=== PATIENT | female | born 1965 | race Caucasian/White ===

== ENCOUNTER 2020-02-10 21:19 | Emergency (ER) | payer OTHER ==
[~2020-02-10] VITALS: Ht 167.6 cm; Wt 87.3 kg
--- NOTE | 2020-02-10 21:26 | NUR ---
Patient BIB ambulance for OD on [place]. Patient was fighting with her and took [phone] of her 's RX at approx [phone]. Patient has a hx of the same. Patient also had approx 1/2 of a fifth of vodka. Patient is AAOx4, GCS 15 but appears drowsy. SPO2 80s on RA. Respirations even and unlabored.
[2020-02-10] MEDS ORDERED: NALOXONE 0.4 MG/ML, 1ML IVPush PRN (21:30)
[2020-02-10] MEDS ORDERED: SODIUM CHLORIDE 0.9% 1,000ML IVBOLUS ONE (21:30)
[2020-02-10] MEDS ORDERED: ONDANSETRON 2MG/ML, 2ML IVPush ONE (21:30)
--- NOTE | 2020-02-10 21:30 | NUR ---
TASK RN: ALL BELONGINGS REMOVED FROM PT. IN 1 BAG; SECURED IN LOCKER. 1 PAIR OF LEGGINGS, 1 TANK TOP, 1 LONG SLEEVE SHIRT, 1 PAIR SLIPPERS, DRIVERS LICENSE PLACED INTO LEFT SLIPPER. PT. PROVIDED WITH WARM BLANKETS, ALL MONITORS IN PLACE, ALL SAFETY MEASURES OBSERVED.
[2020-02-10] MEDS ORDERED: ONDANSETRON 2MG/ML, 2ML ONE (21:32)
[2020-02-10] MEDS ORDERED: NALOXONE 0.4 MG/ML, 1ML ONE (21:35)
[2020-02-10 21:50] LABS: BASOPHILS % (AUTO) 1 % (0-1); EOSINOPHILS % (AUTO) 2 % (1-7); LYMPHOCYTES % (AUTO) 44 % (22-44); MEAN CORPUSCULAR HEMOGLOBIN 33.1 pg (27.0-34.8); MEAN CORPUSCULAR HGB CONC 33.8 g/dL (32.4-35.8); MEAN PLATELET VOLUME 8.9 fL (7.4-10.4); MONOCYTES % (AUTO) 9 % (2-9); NEUTROPHILS % (AUTO) 44 % (42-75); PLATELET COUNT 173 x10^3/uL (130-400); RED BLOOD COUNT 3.94 x10^6/uL (3.82-5.3); RED CELL DISTRIBUTION WIDTH 13.1 % (9.6-15.2)
[2020-02-10 21:51] LABS: MD NO
[2020-02-10 22:02] LABS: ALANINE AMINOTRANSFERASE 19 U/L (12-78); ANION GAP 4 mmol/L (5-15); CALCIUM 8.6 mg/dL (8.5-10.1); CHLORIDE 110 mmol/L (98-107); CREATININE 0.87 mg/dL (0.55-1.02)
[2020-02-10 22:04] LABS: ALKALINE PHOSPHATASE 77 U/L (45-117); BILIRUBIN,TOTAL 0.2 mg/dL (0.2-1.0); SALICYLATE LEVEL < 1.7 mg/dL (2.8-20.0); TOTAL PROTEIN 7.1 g/dL (6.4-8.2)
--- NOTE | 2020-02-10 22:30 | NUR ---
Assisted patient to BR in wheelchair with O2 attached. On RA patient desat to 87%. Urine provided. Sent to lab. Called patient's to update per patient. No answer; LVM.
--- NOTE | 2020-02-10 22:55 | NUR ---
Patient awake and alert; continuously asking to go home. States, "I did not actually take those pills. I just told my that to get attention." Advised patient we have to evaluate labs further. Patient agreed.
--- NOTE | 2020-02-10 22:56 | NUR ---
Judit Bernard [phone]
[2020-02-10 23:29] LABS: AMPHETAMINE SCREEN, URINE Negative (Negative); BARBITURATE SCREEN, URINE Negative (Negative); BENZODIAZEPINE SCREEN, URINE Negative (Negative); CANNABINOID SCREEN, URINE Negative (Negative); COCAINE SCREEN, URINE Negative (Negative); METHADONE SCREEN, URINE Negative (Negative); OPIATE SCREEN, URINE Positive (Negative)
[2020-02-10] MEDS ORDERED: BUPR150T73 PO (23:52)
[2020-02-10] MEDS ORDERED: QUET100T PO (23:52)
[2020-02-10] MEDS ORDERED: ESCI10TA PO (23:52)
[2020-02-10] MEDS ORDERED: ATOR10TA9 PO (23:52)
--- NOTE | 2020-02-11 00:09 | NUR ---
Provided water to patient. Patient stating, "I'm going to check myself out. I want to go home." Advised patient another lab level will be drawn. Patient agreed.
--- NOTE | 2020-02-11 01:35 | NUR ---
TASK RN: PT. PROVIDED WITH WATER PER REQUEST. PT. STATES "I NEED TO LEAVE NOW, I HAVE WORK TOMORROW AND IF I DON'T SHOW UP I'LL GET FIRED." LEGAL HOLD STATUS/PROCESS DISCUSSED WITH PT. PT. VISIBALY UPSET. PT. NOW STATING "I DIDN'T TAKE THOSE PILLS, DO YOU THINK I WOULD BE SITTING HERE ARGUING WITH YOU IF I ACTUALLY DID!? I JUST SAID THAT TO MAKE MY MAD." DISCUSSED NEED TO CONTINUE TO MONITOR/LEGAL HOLD WITH PT. AGAIN. COMFORT MEASURES OFFERED; PROVIDED WITH PILLOW, BED REPOSITIONED, LIGHTS DIMMED.
--- NOTE | 2020-02-11 02:18 | NUR ---
Called patient's work and LVM to inform them patient would not make it into work.
--- NOTE | 2020-02-11 02:20 | NUR ---
Breathylized patient. Patient has no complaints or needs at this time. Sitter outside.
--- NOTE | 2020-02-11 03:36 | NUR ---
Posion control called back to follow up on patient. Per posion control patient should be monitor 6 hours after last dose of narcan. MD updated and aware.
--- NOTE | 2020-02-11 04:38 | NUR ---
Clothing Manager updated vitals and did breathalyzer at this time. MD update with new number of 0.065. Patient resting comfortably at this time, offers no complaints.
--- NOTE | 2020-02-11 07:03 | NUR ---
REPORT RECEIVED FROM ERIKA SCHMIDT FOR TRANSFER OF PATIENT CARE.
--- NOTE | 2020-02-11 07:41 | NUR ---
THROUGHPUT RN::U TO [facility] FOR POSSIBLE ADMISSION
--- NOTE | 2020-02-11 07:50 | NUR ---
SPOKE WITH SPOUSE KILEY [phone] AND UPDATED ON POC.
[2020-02-11 09:19] VITALS: BP 144/79
--- NOTE | 2020-02-11 09:20 | NUR ---
PATIENT RESTING IN GURNEY, BREAKFAST TRAY PROVIDED, CONNECTED TO DISPENSER OPERATOR, NO SIGNS OF ACUTE DISTRESS, SITTER AT DOORWAY, CALL LIGHT WITHIN REACH.
--- NOTE | 2020-02-11 10:50 | NUR ---
PATIENT RESTING IN RDUMFRIES WITH EYES CLOSED, CONNECTED TO BUSINESS CONTINUITY CONSULTANT, NO SIGNS OF ACUTE DISTRESS, SITTER AT DOORWAY, SUICIDE PRECAUTIONS IN PLACE.
--- NOTE | 2020-02-11 11:25 | NUR ---
PATIENT AMBULATED TO BATHROOM AND BACK TO ROOM WITH STEADY GAIT. WATER PROVIDED FOR PATIENT, PATIENT DOES NOT WANT LUNCH TRAY, CONNECTED TO CLIENT SERVICE EXECUTIVE, NO SIGNS OF ACUTE DISTRESS.
--- NOTE | 2020-02-11 13:13 | NUR ---
REPORT CALLED TO ERIKA MICHELLE ON U FOR TRANSFER OF PATIENT CARE.
--- NOTE | 2020-02-11 13:16 | NUR ---
PATIENT UPDATED ON POC.
--- NOTE | 2020-02-11 13:53 | NUR ---
PATIENT TRANSFERRED TO U IN STABLE CONDITION VIA WHEELCHAIR BY DIABETOLOGIST, ALL PATIENT BELONGINGS GATHERED AND TAKEN WITH PATIENT.
== END 2020-02-11 13:54 ==
LOC: ED 22:43
DX: T39.1X2A Poisoning by 4-Aminophenol derivatives, intentional self-harm, initial encounter (principal); T14.91XA Suicide attempt, initial encounter; R00.0 Tachycardia, unspecified; Z11.59 Encounter for screening for other viral diseases; Y92.89 Other specified places as the place of occurrence of the external cause
CPT/HCPCS: 36415; 80053; 80307; 85025; 87635; 93005; 96374; 96375; 99285; J2310; J2405; J7030

== ENCOUNTER 2020-02-11 14:02 | Inpatient (IN) | payer OTHER ==
[~2020-02-11] VITALS: Ht 167.6 cm; Wt 84.8 kg
[~2020-02-11 14:02] MED LIST: ATOR10TA9 PO; BUPR150T73 PO; ESCI10TA PO; QUET100T PO
[2020-02-11] MEDS ORDERED: ACETAMINOPHEN 325 MG TABLET PO PRN (14:30)
[2020-02-11] MEDS ORDERED: DOCUSATE 100 MG CAPSULE PO PRN (14:30)
[2020-02-11] MEDS ORDERED: POLYETHYLENE GLYCOL 17 GM PACKET PO PRN (14:30)
[2020-02-11] MEDS ORDERED: BISACODYL 10 MG SUPP PR PRN (14:30)
[2020-02-11] MEDS ORDERED: ONDANSETRON ODT 4 MG PO PRN (14:30)
[2020-02-11 14:32] VITALS: BP 148/90
[2020-02-11] MEDS ORDERED: PLEASE ENTER HEIGHT AND WEIGHT MC SCH (15:00)
[2020-02-11 16:56] LABS: MICROSCOPIC AUTO
[2020-02-11 19:21] VITALS: BP 161/87
[2020-02-11] MEDS: QUETIAPINE 100MG TABLET PO SCH (20:30)
[2020-02-12 07:12] LABS: ALANINE AMINOTRANSFERASE 14 U/L (12-78); ALBUMIN 3.7 g/dL (3.4-5.0); ANION GAP 3 mmol/L (5-15); CALCIUM 8.7 mg/dL (8.5-10.1); CHLORIDE 112 mmol/L (98-107); CREATININE 0.82 mg/dL (0.55-1.02)
[2020-02-12 07:14] LABS: ALKALINE PHOSPHATASE 74 U/L (45-117); BILIRUBIN,TOTAL 0.4 mg/dL (0.2-1.0); TOTAL PROTEIN 6.4 g/dL (6.4-8.2)
[2020-02-12 07:18] VITALS: BP 129/75
[2020-02-12] MEDS: BUPROPION SR 100 MG TABLET PO SCH (08:27)
[2020-02-12] MEDS: ESCITALOPRAM 10MG TABLET PO SCH (08:27)
[2020-02-12] MEDS ORDERED: POTASSIUM CHLORIDE 20 MEQ TAB.ER.PRT PO ONE (16:00)
[2020-02-12 19:29] VITALS: BP 141/81
[2020-02-12] MEDS: QUETIAPINE 100MG TABLET PO SCH (20:31)
[2020-02-13 07:25] VITALS: BP 113/74
[2020-02-13] MEDS: ESCITALOPRAM 10MG TABLET PO SCH (08:19)
[2020-02-13] MEDS: BUPROPION SR 100 MG TABLET PO SCH (08:20)
[2020-02-13 08:46] LABS: CHOL/HDL RATIO 3.3; LDL/HDL RATIO 1.8 (0.5-3.0)
[2020-02-13 18:34] VITALS: BP 130/82
[2020-02-13] MEDS: QUETIAPINE 100MG TABLET PO SCH (20:08)
[2020-02-14 07:27] VITALS: BP 122/75
== END 2020-02-14 08:00 | disposition home or self-care (01) | DRG 885 ==
LOC: 3E 14:34
PROVIDERS: ADMIT Psychiatry & Neurology Psychosomatic Medicine; ATTEND Psychiatry & Neurology Psychosomatic Medicine
DX: F33.2 Major depressive disorder, recurrent severe without psychotic features (principal); F10.10 Alcohol abuse, uncomplicated; G47.00 Insomnia, unspecified; E78.5 Hyperlipidemia, unspecified; Z79.899 Other long term (current) drug therapy; Z98.1 Arthrodesis status
CPT/HCPCS: 36415; 71045; 80053; 80061; 80307; 81001; 87077; 87086; 87186; 93005; Q0162